=== PATIENT | female | born 1995 | race African-American/Black ===

== ENCOUNTER 2018-08-31 22:11 | Emergency (ER) | payer MEDICAID ==
[~2018-08-31] VITALS: Ht 162.6 cm; Wt 68.0 kg
[~2018-08-31 22:11] MED LIST: ABILIFY; ALBU2.5V13; [UNRECOGNIZED DRUG - REMARK]
[2018-08-31 23:50] LABS: BASOPHILS % 0.5 % (0.0-2.0); EOSINOPHILS % 1.7 % (0.0-5.0); HEMATOCRIT. 36.7 % (36.0-48.0); HEMOGLOBIN. 12.1 g/dL (12.0-16.0); LYMPHOCYTES % 31.2 % (20.0-50.0); MEAN CORPUSCULAR HEMOGLOBIN 29.3 pg (28.0-32.0); MEAN CORPUSCULAR VOLUME 88.4 fL (81.0-99.0); MEAN PLATELET VOLUME 9.2 fl (7.4-10.4); MONOCYTES % 5.8 % (2.0-8.0); NEUTROPHILS % 60.8 % (40.0-76.0); PLATELET 198 x1000/uL (130-400); RED BLOOD CELL COUNT 4.15 mill/uL (4.2-5.4); RED CELL DISTRIBUTION WIDTH 14.8 % (11.6-14.6)
[2018-08-31 23:53] LABS: CHLORIDE 106 mEq/L (98-107)
[2018-09-01 00:01] LABS: ETHANOL BLOOD < 10 mg/dL
[2018-09-01] MEDS ORDERED: POTASSIUM CHLORIDE 20MEQ TABLET SR PO SCH (00:31)
[2018-09-01 00:32] VITALS: BP 112/59
== END 2018-09-01 00:51 | disposition home or self-care (01) ==
LOC: ER 22:42
DX: F12.10 Cannabis abuse, uncomplicated (principal); F17.200 Nicotine dependence, unspecified, uncomplicated; Z88.6 Allergy status to analgesic agent; Z91.010 Allergy to peanuts
CPT/HCPCS: 36415; 70450; 80053; 81025; 82962; 85025; 99285; G0482; Z7610

== ENCOUNTER 2022-11-07 23:12 | Emergency (ER) | payer MEDICAID ==
[~2022-11-07] VITALS: Ht 167.6 cm; Wt 88.7 kg
[2022-11-07 23:13] VITALS: BP 136/77
== END 2022-11-08 08:42 | disposition left against medical advice (07) ==
LOC: ER 23:12
DX: Z53.21 Procedure and treatment not carried out due to patient leaving prior to being seen by health care provider (principal)
CPT/HCPCS: 71045; 93005; 99283

== ENCOUNTER 2022-11-20 15:33 | Emergency (ER) | payer MEDICAID ==
[~2022-11-20] VITALS: Ht 160 cm; Wt 88.0 kg
[2022-11-20 15:46] VITALS: BP 111/75
[2022-11-20 17:13] LABS: BASOPHILS % 0.8 % (0.0-2.0); EOSINOPHILS % 2.5 % (0.0-5.0); HEMATOCRIT. 38.4 % (36.0-48.0); LYMPHOCYTES % 28.9 % (20.0-50.0); MEAN CORPUSCULAR HEMOGLOBIN 31.5 pg (28.0-32.0); MEAN CORPUSCULAR VOLUME 93.1 fL (81.0-99.0); MEAN PLATELET VOLUME 7.8 fl (7.4-10.4); MONOCYTES % 6.1 % (2.0-8.0); NEUTROPHILS % 61.7 % (40.0-76.0); PLATELET 257 x1000/uL (130-400); RED BLOOD CELL COUNT 4.12 mill/uL (4.2-5.4); RED CELL DISTRIBUTION WIDTH 13.7 % (11.6-14.6)
[2022-11-20 17:21] LABS: CHLORIDE 110 mEq/L (98-107)
[2022-11-20 17:37] LABS: T4 FREE 0.81 ng/dL (0.76-1.46)
[2022-11-20 17:40] LABS: HCG SCREEN NEGATIVE
[2022-11-20] MEDS ORDERED: IOHEXOL-300 100 ML BOTTLE ONE (18:48)
== END 2022-11-20 19:30 | disposition home or self-care (01) ==
LOC: ER 15:33
DX: E04.1 Nontoxic single thyroid nodule (principal); Z88.6 Allergy status to analgesic agent; Z91.010 Allergy to peanuts
CPT/HCPCS: 36415; 70491; 80053; 81025; 84439; 84443; 84481; 84703; 85025; 99285; Q9967

== ENCOUNTER 2023-06-03 10:49 | Emergency (ER) | payer MEDICAID ==
[~2023-06-03] VITALS: Ht 167.6 cm; Wt 73.0 kg
[2023-06-03 10:57] VITALS: BP 140/74; PULSE 64; RESP 16; TEMP 98.9; O2SAT 99
[2023-06-03 11:30] LABS: BASOPHILS % 0.8 % (0.0-2.0); EOSINOPHILS % 3.6 % (0.0-5.0); HEMATOCRIT. 41.1 % (36.0-48.0); HEMOGLOBIN. 13.8 g/dL (12.0-16.0); LYMPHOCYTES % 35.1 % (20.0-50.0); MEAN CORPUSCULAR HEMOGLOBIN 30.7 pg (28.0-32.0); MEAN CORPUSCULAR VOLUME 91.3 fL (81.0-99.0); MONOCYTES % 5.7 % (2.0-8.0); NEUTROPHILS % 54.8 % (40.0-76.0); PLATELET 273 x1000/uL (130-400); RED CELL DISTRIBUTION WIDTH 13.3 % (11.6-14.6)
[2023-06-03 11:40] LABS: CHLORIDE 109 mEq/L (98-107)
[2023-06-03 11:49] LABS: CLARITY URINE CLOUDY (CLEAR); COLOR URINE YELLOW (YELLOW); KETONES URINE NEGATIVE (NEGATIVE); LEUKOCYTE ESTERASE URINE 3+ (NEGATIVE); NITRITE URINE NEGATIVE (NEGATIVE); OCCULT BLOOD URINE NEGATIVE (NEGATIVE); PROTEIN URINE NEGATIVE (NEGATIVE); SPECIFIC GRAVITY URINE 1.013 (1.005-1.030)
[2023-06-03 11:57] LABS: PROTHROMBIN TIME 10.7 sec (9.6-11.0)
[2023-06-03 11:58] LABS: T4 FREE 1.05 ng/dL (0.76-1.46)
[2023-06-03 12:20] LABS: HCG SCREEN NEGATIVE
[2023-06-03] MEDS ORDERED: NITR100C PO (13:12)
== END 2023-06-03 13:40 | disposition home or self-care (01) ==
LOC: ER 10:49
DX: E01.0 Iodine-deficiency related diffuse (endemic) goiter (principal); N39.0 Urinary tract infection, site not specified; F12.10 Cannabis abuse, uncomplicated; Z87.19 Personal history of other diseases of the digestive system
CPT/HCPCS: 36415; 80053; 81003; 84439; 84443; 84703; 85025; 87070; 87430; 99283